=== PATIENT | male | born 1995 | race Caucasian/White ===

== ENCOUNTER 2016-07-28 23:07 | Emergency (ER) | payer OTHER ==
[2016-07-28 23:18] VITALS: BP 160/103
[2016-07-28] MEDS ORDERED: AUGMENTIN PO ONE (23:29)
[2016-07-28] MEDS ORDERED: BOOSTRIX VACCINE IM ONE (23:29)
--- NOTE | 2016-07-29 00:02 | PROVIDER DOCUMENTATION ---
HPI-General Adult - General Chief Complaint: Animal Bite Stated Complaint: DOG BITE Time Seen by Provider: 07/28/16 23:09 Source: patient Allergies/Adverse Reactions: Patient Allergies Allergy/AdvReac Type Severity Reaction Status Date / Time peanut Allergy ANAPHYLAXIS Verified 07/28/16 23:18 Home Medications: Home Medication List Medication Instructions Recorded Confirmed Last Taken Type Amoxicillin/Pot Clavulanate 875 mg PO Q12HR #10 tablet 07/28/16 Unknown Rx [Augmentin] Dextroamphetamine/Amphetamine 30 mg PO DAILY 07/28/16 07/28/16 1 Day Ago History [Adderall 30 mg Tablet] - History of Present Illness -Gen Adult Nature of Presenting Problems: Pt. is 21 yom that presents with c/o dog bite to right elbow. Pt. reports he was helping a lady in [employer] in [place] and her dog bit him. Pt. denies any other injury at time of exam. Location of Pain/Injury: reports: upper extremity (Right elbow). denies: head, face, mouth, neck, chest, hand(s), abdomen, back, pelvis, genitalia, lower extremity, feet, upper body, lower body, generalized Pain Radiation: reports: no radiation Quality of Pain: reports: aching. denies: burning, cramping, dull, fullness, indigestion, pressure, sharp, stabbing, tearing, throbbing, tightness Severity: reports: moderate. denies: mild, severe Onset/Duration: reports: abrupt, just prior to arrival Timing: reports: still present. denies: improving, gone now, resolved prior to arrival, intermittent, constant, changing over time, getting worse Context/Activities at Onset: reports: none, recent trauma history. denies: recent emotional stress, recent physical stress, possible bad food, cold exposure, out of country travel Modifying Factors: improves with: nothing Associated Symptoms: reports: arm pain. denies: anxiety, back/neck pain, chest pain, constipation, cough, diaphoresis, diarrhea, dizziness, EENT symptoms, fatigue, fever/chills, genitourinary problems, headaches, heartburn, joint pain , loss of appetite, malaise, muscle aches, sinus congestion/drainage, nausea, rash, seizure, shortness of breath, sensory/motor loss, pain with inspiration, swelling/mass in abdomen, syncope, vomiting, weakness, trouble walking Similar Symptoms Previously?: No Recently seen or treated by another doctor?: No Review of Systems - Adult - REVIEW OF SYSTEMS - ADULT Constitutional: reports: see HPI. denies: chills, fever, fatique Eyes: reports: see HPI. denies: discharge, blurred vision, double vision Ears, Nose, Mouth & Throat: reports: see HPI. denies: ear discharge, ear pain, hearing loss, sinus problem, nose pain, loose teeth, mouth/dental pain, throat pain, throat swelling Cardiovascular: reports: see HPI. denies: chest pain, irregular heart rate, orthopnea, syncope Respiratory: reports: see HPI. denies: chronic cough, cough, dyspnea on exertion, pleurisy, shortness of breath, wheezing Gastrointestinal: reports: see HPI. denies: abdominal pain, hematemesis, difficulty swallowing, frequent heartburn, nausea, vomiting Genitourinary: reports: see HPI. denies: dysuria, discharge, frequent UTI's, hematuria, hesitency, urgency Musculoskeletal: reports: see HPI. denies: bone pain, back pain, joint pain, joint swelling, neck pain Integumentary: reports: see HPI, skin sores/ulcer. denies: hair loss, itching, nail changes, rash Neurological: reports: see HPI. denies: ataxia, headache/migraines, numbness, paresthesia, seizure, tremors Psychiatric: reports: see HPI. denies: anxiety, depression, emotional problems , insomnia, panic attacks, suicidal thoughts Past History - Adult - PAST MEDICAL HISTORY-ADULT Review of Records: reports: Old Records Reviewed, Nursing Assessment Review, Medications Reviewed, Social history reviewed & non-contributory. Major Childhood Illnesses: reports: denies history Cardiovascular: reports: denies history Respiratory: reports: denies history Gastrointestinal: reports: denies history Obstetrical/Gynecological: reports: denies history Genitourinary: reports: denies history Musculoskeletal: reports: denies history Neurological: reports: denies history Endocrine/Immune: reports: denies history Other Conditions: reports: denies history - IMMUNIZATION STATUS Childhood Immunizations: See Nurse Assessment Flu Vaccine: See Nurse Assessment - FAMILY HISTORY Family History: reviewed, not pertinent - SOCIAL HISTORY Smoking: non-smoker Physical Exam-General - PHYSICAL EXAM-ADULT Initial Vital Signs Reviewed: Yes - CONSTITUTIONAL General Appearance: alert, mild distress, obese. negative: thin, anxious, lethargic, slow to respond, obtunded, combative - EYES Eyes: PERRL/EOMI, pink conjunctivae. negative: conjuctival exudate, scleral icterus, subconjunctival hemorrhage - HEAD, EARS, NOSE, MOUTH & THROAT HENMT: normocephalic/atraumatic, moist mucous membranes. negative: angioedema, frontal tenderness, maxillary tenderness - NECK Neck: non-tender, full range of motion, supple, normal inspection. negative: lymphadenopathy, trachial deviation, thyromegaly - RESPIRATORY Respiratory: lungs clear, normal breath sounds. negative: crackles, rales, rhonchi, stridor, wheezing - CARDIOVASCULAR Cardiovascular: normal peripheral pulses, regular rate, rhythm, no edema, no JVD , no murmur. negative: extra beats, friction rub, irregularly irregular - CHEST (BREASTS) Chest/Breast: deferred - GASTROINTESTINAL (ABDOMEN) Abdominal Exam: normal bowel sounds, non tender, soft. negative: distended, guarding, rigid, rebound, tenderness, hernia, mass - GENITOURINARY Male Genitalia: deferred Rectal Exam: deferred Hemoccult Exam: deferred - LYMPHATIC Lymphatic: no adenopathy. negative: axilla node tender, cervical node tenderness - MUSCULOSKELETAL Back Exam: normal inspection, no CVA tenderness, no vertebral tenderness. negative: ecchymosis, swelling, vertebral tenderness Extremity: normal range of motion, non-tender, normal gait, normal inspection. negative: deformity, erythema, inflammation, swelling, tenderness Peripheral Pulses: radial (R): 2+, radial (L): 2+ - SKIN Integumentary: normal color, normal turgor, warm/dry, erythema (There are two puncture wounds to the lateral aspect of the right elbow. There is some mild swelling with erythema to the same area. No other injuries noted.), swelling ( There are two puncture wounds to the lateral aspect of the right elbow. There is some mild swelling with erythema to the same area. No other injuries noted.) , tenderness (There are two puncture wounds to the lateral aspect of the right elbow. There is some mild swelling with erythema to the same area. No other injuries noted.), other (There are two puncture wounds to the lateral aspect of the right elbow. There is some mild swelling with erythema to the same area. No other injuries noted.). negative: cyanosis, diaphoresis, ecchymosis, jaundice, mottled, pallor, petechiae, purpura, rash - NEUROLOGIC Neurologic: grossly normal, no motor/sensory deficits. negative: aphasia, facial droop, focal weakness, motor weakness, sensory deficit - PSYCHIATRIC Psych/Mental Status: normal mood/affect, normal thought content, normal thought process, oriented x 3. negative: anxious, paranoid, tearful Progress - PLAN OF CARE/RESULTS Progress/Plan/Lab Results: Discussed results and plan of care with patient. Patient agrees with plan and verbalizes understanding. Vital Signs Temp Pulse Resp BP Pulse Ox 07/28/16 23:12 98.1 F 114 H 20 160/103 100 peanut Allergy (Verified 07/28/16 23:18) ANAPHYLAXIS Dextroamphetamine/Amphetamine [Adderall 30 mg Tablet] 30 mg PO DAILY 07/28/16 Orders Category Date Time Status Wound Care DIRECTED Care 07/28/16 23:30 Active ELBOW COMPLETE RIGHT [RAD] Stat Exams 07/28/16 23:28 Taken Amoxicillin/Pot Clavulanate [Augmentin] Med 07/28/16 23:29 Discontinued 875 mg PO NOW ONE Diph,Pertuss(Acell),Tet Vac/Pf [Boostrix Vaccine] Med 07/28/16 23:29 Discontinued 0.5 ml IM .ONCE ONE - XRAY 1 XRAY: Right XRAY Study: Elbow XRAY Interpretation: No Fx (Herve) Departure - Departure Time of Disposition Order: 23:58 DIAGNOSIS: Dog bite Qualifiers: Encounter type: initial encounter Qualified Code(s): W54.0XXA - Bitten by dog, initial encounter Disposition: HOME 01 Certified Medical Emergency: Emergent Condition: Stable Additional Instructions: Follow up with primary care physician Take medications as directed Return to ED for any concerns or worsening of symptoms ED Follow Up Instructions: You have been treated by a care provider in the Emergency Department. These instructions are being provided to you so you can have an understanding of how to care for yourself upon discharge. Upon discharge from the Emergency Department, you are responsible for making arrangements for follow-up care by a physician of your choice. Take all prescribed medications as directed. Return to the Emergency Department immediately for any new or worsening symptoms. You may call the Physician Referral phone number at [phone] to obtain a list of Physicians who are taking new patients. Prescriptions: Amoxicillin/Pot Clavulanate [Augmentin] 875 mg PO Q12HR #10 tablet Attestation - Physician/ JEFERSON Attestation Patient care was provided by Advanced Practice Provider:: Yes Advanced Practice Provider:: Stan Edgar Advanced Practice Provider documentation review:: The Mid-level provider documentation, treatment plan and medical decision making was reviewed by the physician who agrees with all treatment and medical decision making by the MLP.
[2016-07-29] MEDS ORDERED: NORCO-7.5 PO ONE (00:06)
--- NOTE | 2016-07-29 08:51 | Diag Imaging Result Document ---
PROCEDURE NAME: ELBOW COMPLETE RIGHT - 07/28/2016 RIGHT ELBOW, THREE VIEWS: FINDINGS: No fracture. No dislocation. IMPRESSION: No acute bony injury.
== END 2016-07-29 00:30 | disposition home or self-care (01) ==
LOC: P.ED 23:07
DX: S51.031A Puncture wound without foreign body of right elbow, initial encounter (principal); W54.0XXA Bitten by dog, initial encounter; M79.601 Pain in right arm; E66.9 Obesity, unspecified; Z79.899 Other long term (current) drug therapy; Z23 Encounter for immunization
CPT/HCPCS: 90471; 90715